=== PATIENT | female | born 1980 | race African-American/Black ===

== ENCOUNTER 2016-11-25 12:32 | Emergency (ER) | payer SELFPAY ==
[~2016-11-25] VITALS: Ht 172.7 cm; Wt 60.0 kg
[2016-11-25 13:31] LABS: URINE BILIRUBIN - DIPSTICK NEGATIVE (NEGATIVE); URINE CLARITY SLIGHT CLOUDY; URINE COLOR YELLOW; URINE GLUCOSE - DIPSTICK NEGATIVE (NEGATIVE); URINE KETONE TRACE mg/dL (NEGATIVE); URINE NITRITE - DIPSTICK NEGATIVE (Negative); URINE PROTEIN - DIPSTICK 30 mg/dL (NEG-TRACE); URINE SPECIFIC GRAVITY 1.025; URINE UROBILINOGEN - DIPSTICK 0.2 E.U./dL (0.2)
[2016-11-25 13:35] LABS: URINE BLOOD DIPSTICK NEGATIVE (NEGATIVE); URINE LEUK ESTERASE MODERATE (NEGATIVE)
[2016-11-25 13:36] LABS: URINE BACTERIA FEW hpf; URINE EPITHELIAL CELLS MODERATE EPI/hpf (0-FEW); URINE MUCUS MODERATE hpf (NONE-FEW); URINE RBC 0-2 RBC/hpf (0-5)
[2016-11-25 13:46] LABS: ALBUMIN 4.6 g/dL (3.2-5.0); ALKALINE PHOSPHATASE 63 u/l (38-126); AMYLASE 125 u/l (30-110); ANION GAP 17 (6-22 (CALC)); BILIRUBIN, TOTAL 1.7 mg/dL (0.0-1.4); BUN 13 mg/dL (7-17); BUN/CREATININE RATIO 13 (12-20 (CALC)); CALCIUM 9.5 mg/dL (8.4-10.2); CARBON DIOXIDE 22 mmol/l (22-30); CHLORIDE 106 mmol/l (95-108); GFR > 60 ML/MIN (>=60 (CALC)); GFR FOR AFR.AMER. > 60 ML/MIN (>=60 (CALC)); GLUCOSE 118 mg/dL (65-105); LIPASE 84 u/l (23-300); POTASSIUM 3.5 mmol/l (3.5-5.1); SGOT/AST 18 u/l (14-36); SGPT/ALT 33 u/l (9-52); SODIUM 141 mmol/l (137-146); TOTAL PROTEIN 7.9 g/dL (6.3-8.2)
[2016-11-25 13:58] LABS: HEMATOCRIT 35.3 % (37.0-47.0); HEMOGLOBIN 11.1 g/dl (12.0-16.0); IMMATURE GRANULOCYTES 0.1 % (0.0-1.0); MEAN CELL VOLUME 72.2 fL CALC (80.0-100.0); MEAN CORPUSCULAR HGB 22.7 pG CALC (26.0-32.0); MEAN CORPUSCULAR HGB CONC 31.4 g/L CALC (32.0-36.0); NEUT# 3.59 thou/uL (2.00-7.15); RED BLOOD COUNT 4.89 mill/uL (4.20-5.60); RED CELL DISTRI WIDTH 19.9 % (11.5-15.5)
[2016-11-25] MEDS ORDERED: CEPHALEXIN500 MG PO (14:23)
[2016-11-25 14:47] VITALS: BP 149/84
== END 2016-11-25 14:48 | disposition left against medical advice (07) | DRG 392 ==
LOC: ED 12:32
PROVIDERS: Emergency Medicine
DX: R10.30 Lower abdominal pain, unspecified (principal); N39.0 Urinary tract infection, site not specified; Z91.19 Patient's noncompliance with other medical treatment and regimen

== ENCOUNTER 2017-05-05 10:25 | Emergency (ER) | payer SELFPAY ==
[~2017-05-05] VITALS: Ht 172.7 cm; Wt 65.0 kg
[~2017-05-05 10:25] MED LIST: CEPHALEXIN500 MG PO
[2017-05-05 11:24] LABS: HEMATOCRIT 34.6 % (37.0-47.0); HEMOGLOBIN 10.5 g/dl (12.0-16.0); IMMATURE GRANULOCYTES 0.1 % (0.0-1.0); MEAN CELL VOLUME 73.6 fL CALC (80.0-100.0); MEAN CORPUSCULAR HGB 22.3 pG CALC (26.0-32.0); MEAN CORPUSCULAR HGB CONC 30.3 g/L CALC (32.0-36.0); NEUT# 3.29 thou/uL (2.00-7.15); RED BLOOD COUNT 4.7 mill/uL (4.20-5.60); RED CELL DISTRI WIDTH 17.6 % (11.5-15.5)
[2017-05-05 11:30] LABS: INFLUENZA A NONE DETECTED (NONE DETECT); INFLUENZA B NONE DETECTED (NONE DETECT)
[2017-05-05] MEDS ORDERED: VENTOLIN HFA IN (12:45)
[2017-05-05] MEDS ORDERED: TUSSIONEX1 ML PO (12:45)
[2017-05-05] MEDS ORDERED: PREDNISONE10 MG PO (12:45)
[2017-05-05 13:18] VITALS: BP 165/102
== END 2017-05-05 13:00 | disposition home or self-care (01) | DRG 866 ==
LOC: ED 10:25
PROVIDERS: Family Medicine
DX: B34.9 Viral infection, unspecified (principal); I10 Essential (primary) hypertension

== ENCOUNTER 2017-05-08 16:05 | Emergency (ER) | payer SELFPAY ==
[~2017-05-08] VITALS: Ht 172.7 cm; Wt 72.0 kg
[~2017-05-08 16:05] MED LIST changes: +PREDNISONE10 MG PO; +TUSSIONEX1 ML PO; +VENTOLIN HFA IN
[2017-05-08 17:38] LABS: HEMOGLOBIN 11.1 g/dl (12.0-16.0); IMMATURE GRANULOCYTES 0.1 % (0.0-1.0); MEAN CELL VOLUME 72.8 fL CALC (80.0-100.0); MEAN CORPUSCULAR HGB 21.9 pG CALC (26.0-32.0); NEUT# 3.56 thou/uL (2.00-7.15); RED BLOOD COUNT 5.08 mill/uL (4.20-5.60); RED CELL DISTRI WIDTH 17.3 % (11.5-15.5)
[2017-05-08 17:42] LABS: URINE BILIRUBIN - DIPSTICK NEGATIVE (NEGATIVE); URINE BLOOD DIPSTICK NEGATIVE (NEGATIVE); URINE COLOR YELLOW; URINE GLUCOSE - DIPSTICK NEGATIVE (NEGATIVE); URINE KETONE TRACE mg/dL (NEGATIVE); URINE LEUK ESTERASE NEGATIVE (NEGATIVE); URINE NITRITE - DIPSTICK NEGATIVE (Negative); URINE PH 5.5 (4.5-8.0); URINE PROTEIN - DIPSTICK NEGATIVE (NEG-TRACE); URINE SPECIFIC GRAVITY >=1.030; URINE UROBILINOGEN - DIPSTICK 0.2 E.U./dL (0.2)
[2017-05-08 17:43] LABS: URINE CLARITY CLEAR
[2017-05-08 18:06] LABS: ALBUMIN 4.4 g/dL (3.2-5.0); ALKALINE PHOSPHATASE 93 u/l (38-126); ANION GAP 17 (6-22 (CALC)); BUN 19 mg/dL (7-17); BUN/CREATININE RATIO 21 (12-20 (CALC)); CARBON DIOXIDE 25 mmol/l (22-30); CHLORIDE 105 mmol/l (95-108); CREATININE 0.9 mg/dL (0.5-1.0); GFR > 60 ML/MIN (>=60 (CALC)); GFR FOR AFR.AMER. > 60 ML/MIN (>=60 (CALC)); LIPASE 144 u/l (23-300); SGOT/AST 23 u/l (14-36); SGPT/ALT 28 u/l (9-52); SODIUM 142 mmol/l (137-146); TOTAL PROTEIN 7.8 g/dL (6.3-8.2)
[2017-05-08 18:11] LABS: POTASSIUM 4.6 mmol/l (3.5-5.1)
[2017-05-08] MEDS ORDERED: ZOFRAN4 M1 PO (18:51)
[2017-05-08 19:49] VITALS: BP 128/74
== END 2017-05-08 19:30 | disposition home or self-care (01) | DRG 392 ==
LOC: ED 16:05
PROVIDERS: Family Medicine
DX: K52.9 Noninfective gastroenteritis and colitis, unspecified (principal); R10.33 Periumbilical pain; R11.2 Nausea with vomiting, unspecified; R50.9 Fever, unspecified
CPT/HCPCS: Q9967

== ENCOUNTER 2017-05-13 01:48 | Emergency (ER) | payer SELFPAY ==
[~2017-05-13] VITALS: Ht 172.7 cm; Wt 68.2 kg
[~2017-05-13 01:48] MED LIST changes: +ZOFRAN4 M1 PO
[2017-05-13 02:30] LABS: HEMATOCRIT 32.3 % (37.0-47.0); HEMOGLOBIN 9.8 g/dl (12.0-16.0); IMMATURE GRANULOCYTES 0.2 % (0.0-1.0); MEAN CELL VOLUME 72.3 fL CALC (80.0-100.0); MEAN CORPUSCULAR HGB 21.9 pG CALC (26.0-32.0); MEAN CORPUSCULAR HGB CONC 30.3 g/L CALC (32.0-36.0); NEUT# 5.83 thou/uL (2.00-7.15); RED BLOOD COUNT 4.47 mill/uL (4.20-5.60); RED CELL DISTRI WIDTH 17.2 % (11.5-15.5)
[2017-05-13 02:45] LABS: ALBUMIN 3.8 g/dL (3.2-5.0); ALKALINE PHOSPHATASE 85 u/l (38-126); ANION GAP 14 (6-22 (CALC)); BILIRUBIN, TOTAL 0.9 mg/dL (0.0-1.4); BUN 12 mg/dL (7-17); BUN/CREATININE RATIO 13 (12-20 (CALC)); CARBON DIOXIDE 23 mmol/l (22-30); CHLORIDE 107 mmol/l (95-108); CREATININE 0.9 mg/dL (0.5-1.0); ETHYL ALCOHOL 0 mg/dl (0-30); GFR > 60 ML/MIN (>=60 (CALC)); GFR FOR AFR.AMER. > 60 ML/MIN (>=60 (CALC)); POTASSIUM 3.7 mmol/l (3.5-5.1); SGOT/AST 18 u/l (14-36); SGPT/ALT 28 u/l (9-52); SODIUM 140 mmol/l (137-146); TOTAL PROTEIN 6.7 g/dL (6.3-8.2)
[2017-05-13 02:54] LABS: MYOGLOBIN 26 ng/mL (0 - 62)
[2017-05-13 04:11] LABS: BARBITURATES NEGATIVE (NEGATIVE); COCAINE NEGATIVE (NEGATIVE); METHADONE NEGATIVE (NEGATIVE); OXCYCODONE NEGATIVE (NEGATIVE); TETRAHYDROCANNABIONOL NEGATIVE (NEGATIVE); TRICYLIC ANTIDEPRESSANTS NEGATIVE (NEGATIVE); URINE BILIRUBIN - DIPSTICK NEGATIVE (NEGATIVE); URINE BLOOD DIPSTICK NEGATIVE (NEGATIVE); URINE CLARITY CLEAR; URINE COLOR YELLOW; URINE GLUCOSE - DIPSTICK NEGATIVE (NEGATIVE); URINE KETONE NEGATIVE (NEGATIVE); URINE LEUK ESTERASE NEGATIVE (NEGATIVE); URINE NITRITE - DIPSTICK NEGATIVE (Negative); URINE PROTEIN - DIPSTICK NEGATIVE (NEG-TRACE); URINE UROBILINOGEN - DIPSTICK 0.2 E.U./dL (0.2)
[2017-05-13 04:59] VITALS: BP 133/65
== END 2017-05-13 05:11 | disposition home or self-care (01) | DRG 312 ==
LOC: ED 01:48
PROVIDERS: Emergency Medicine
DX: R55 Syncope and collapse (principal); D64.9 Anemia, unspecified; I10 Essential (primary) hypertension

== ENCOUNTER 2017-06-09 09:55 | Emergency (ER) | payer SELFPAY ==
[~2017-06-09] VITALS: Ht 172.7 cm; Wt 72.6 kg
[2017-06-09 10:55] LABS: HEMATOCRIT 38.9 % (37.0-47.0); HEMOGLOBIN 11.7 g/dl (12.0-16.0); IMMATURE GRANULOCYTES 0.5 % (0.0-1.0); MEAN CELL VOLUME 75.5 fL CALC (80.0-100.0); MEAN CORPUSCULAR HGB 22.7 pG CALC (26.0-32.0); MEAN CORPUSCULAR HGB CONC 30.1 g/L CALC (32.0-36.0); NEUT# 12.31 thou/uL (2.00-7.15); RED BLOOD COUNT 5.15 mill/uL (4.20-5.60); RED CELL DISTRI WIDTH 21.1 % (11.5-15.5)
[2017-06-09 11:16] LABS: ALBUMIN 3.8 g/dL (3.2-5.0); ALKALINE PHOSPHATASE 89 u/l (38-126); ANION GAP 16 (6-22 (CALC)); BILIRUBIN, TOTAL 1.7 mg/dL (0.0-1.4); BUN 14 mg/dL (7-17); BUN/CREATININE RATIO 14 (12-20 (CALC)); CARBON DIOXIDE 25 mmol/l (22-30); CHLORIDE 103 mmol/l (95-108); GFR > 60 ML/MIN (>=60 (CALC)); GFR FOR AFR.AMER. > 60 ML/MIN (>=60 (CALC)); POTASSIUM 3.7 mmol/l (3.5-5.1); SGOT/AST 16 u/l (14-36); SGPT/ALT 27 u/l (9-52); SODIUM 141 mmol/l (137-146); TOTAL PROTEIN 7.1 g/dL (6.3-8.2)
[2017-06-09] MEDS ORDERED: AMOXICILLIN500 MG PO (11:25)
[2017-06-09] MEDS ORDERED: TORADOL PO (11:25)
[2017-06-09 11:42] VITALS: BP 130/103
== END 2017-06-09 11:52 | disposition home or self-care (01) | DRG 153 ==
LOC: ED 09:55
PROVIDERS: Emergency Medicine
DX: J02.0 Streptococcal pharyngitis (principal); I10 Essential (primary) hypertension

== ENCOUNTER 2017-09-08 14:57 | Emergency (ER) | payer SELFPAY ==
[~2017-09-08] VITALS: Ht 172.7 cm; Wt 64.0 kg
[~2017-09-08 14:57] MED LIST changes: +AMOXICILLIN500 MG PO; +TORADOL PO
[2017-09-08] MEDS ORDERED: IBUPROFEN600 MG PO (16:00)
[2017-09-08] MEDS ORDERED: AUGMENTIN875TAB PO (16:00)
[2017-09-08 16:08] VITALS: BP 158/97
[2017-09-08] MEDS ORDERED: LISINOPRIL5 MG PO (16:22)
== END 2017-09-08 16:15 | disposition home or self-care (01) | DRG 153 ==
LOC: ED 14:57
DX: J06.9 Acute upper respiratory infection, unspecified (principal); I10 Essential (primary) hypertension

== ENCOUNTER 2017-11-14 22:36 | Observation (INO) | payer SELFPAY ==
[~2017-11-14] VITALS: Ht 172.7 cm; Wt 79.4 kg
[~2017-11-14 22:36] MED LIST changes: +AUGMENTIN875TAB PO; +IBUPROFEN600 MG PO; +LISINOPRIL5 MG PO
--- NOTE | 2017-11-14 22:40 | NUR ---
BY EMS STRETCHER TO ROOM 12
[2017-11-14] MEDS ORDERED: ALBUTERO1 IN (23:00)
[2017-11-14 23:10] LABS: IMMATURE GRANULOCYTES 0.2 % (0.0-5.0); MEAN CORPUSCULAR HGB 29.3 pG CALC (26.0-32.0); MEAN CORPUSCULAR HGB CONC 32.3 g/L CALC (32.0-36.0); NEUT# 5.48 thou/uL (2.00-7.15); RED BLOOD COUNT 4.74 mill/uL (4.20-5.60); RED CELL DISTRI WIDTH 16.5 % (11.5-15.5)
[2017-11-14 23:11] LABS: HEMOGLOBIN 13.9 g/dl (12.0-16.0); MEAN CELL VOLUME 90.7 fL CALC (80.0-100.0)
--- NOTE | 2017-11-14 23:13 | NUR ---
SPO2 DROPPED TO 82, PLACED ON 4 L/NC
[2017-11-14 23:17] LABS: ALBUMIN 4.4 g/dL (3.2-5.0); ALKALINE PHOSPHATASE 84 u/l (38-126); ANION GAP 13 (6-22 (CALC)); BILIRUBIN, TOTAL 1.3 mg/dL (0.0-1.4); BUN 11 mg/dL (7-17); BUN/CREATININE RATIO 14 (12-20 (CALC)); CARBON DIOXIDE 27 mmol/l (22-30); CHLORIDE 106 mmol/l (95-108); CREATININE 0.8 mg/dL (0.5-1.0); GFR > 60 ML/MIN (>=60 (CALC)); GFR FOR AFR.AMER. > 60 ML/MIN (>=60 (CALC)); POTASSIUM 3.6 mmol/l (3.5-5.1); SGOT/AST 25 u/l (14-36); SGPT/ALT 33 u/l (9-52); SODIUM 142 mmol/l (137-146); TOTAL PROTEIN 7.8 g/dL (6.3-8.2)
[2017-11-14 23:21] LABS: INFLUENZA A NONE DETECTED (NONE DETECT); INFLUENZA B NONE DETECTED (NONE DETECT)
--- NOTE | 2017-11-14 23:43 | NUR ---
BREATHING EASIER, RR DECREASED, EFFORT DECREASED. FEELING BETTER.
[2017-11-15] VITALS (7 sets, daily range): BP systolic 136–160; BP diastolic 80–103
--- NOTE | 2017-11-15 01:00 | NUR ---
Admission Note Report Given to: RICKY GREER Transported by: Wheelchair X Stretcher Transported with: X Nurse Transporter X Patent IV X O2 X Archaeologist
--- NOTE | 2017-11-15 01:10 | NUR ---
PT ARRIVED TO UNIT VIA STRETCHER WITH ER STAFF IN STABLE CONDITION; ALERT AND ORIENTED. MAGNESIUM INFUSING UPON ARRIVAL; IV SITE APPEARS HEALTHY. TELE ON. DENIES PAIN. RESPIRATIONS LABORED AND EVEN ON 4L OF OXYGEN VIA NC; 100% OXYGEN SATURATION; TITRATED TO 2L AND REMAINS AT 98%. ORIENTED TO ROOM AND CALL LIGHT SYSTEM. PLAN OF CARE DISCUSSED. PT ENCOURAGED TO VERBALIZE CONCERNS. STATES UNDERSTANDING. SAFETY MEASURES IN PLACE. CALL LIGHT WITHIN REACH.
--- NOTE | 2017-11-15 02:52 | NUR ---
PT WAS RESTING IN BED; RESPIRATIONS EVEN AND UNLABORED AND BLOOD PRESSURE IMPROVED. AMBULATED TO BATHROOM WITH EXERTIONAL SOB. PT BECAME ANXIOUS WITH INCREASED SOB. EDUCATED ON BREATHING TECHNIQUES AND RT AT BEDSIDE FOR BREATHING TREATMENT.
--- NOTE | 2017-11-15 05:00 | NUR ---
PT STATES THAT SHE FEELS MUCH BETTER SINCE DUONEB; RESPIRATIONS EVEN AND UNLABORED ON OXYGEN STILL AT 2L. C/O HEADAHCE; COOL PACK APPLIED. NO OTHER REQUESTS OR CONCERNS AT THIS TIME. CALL LIGHT WITHIN REACH.
--- NOTE | 2017-11-15 05:39 | NUR ---
TYLENOL GIVEN FOR HEADAHCE. PT STATES THAT HER COUGH IS NOW PRODUCTIVE WITH THIN CLEAR SECRETIONS.
--- NOTE | 2017-11-15 07:25 | NUR ---
AM ASSESSMENT COMPLETED; SEE INTERVENTIONS; PT RESTING IN BED, LUNGS TIGHT/DIMINSHED WITH WHEEZES THRU OUT; NO SOB OR DISTRESS NOTED AT REST BUT WITH MINIMAL EXERTION PT BECOMES SOB; 02 REMAINS ON AT 2L VIA NC; AMBULATED TO BATHROOM WITH NURSE IN ROOM ADNTOLERATED ACTIVITY BUT ADMITS TO BEING SOB UPON RETURN TO BED; DISTANCE AMBULATED LESS THAN 100 FT. IV ACCESS SALINE LOCKED IN LAC, NO COMPLAINTS OF PAIN; SAFETY MEASURES REINFORCED; WILL CONTINUE TO MONITOR.
--- NOTE | 2017-11-15 09:02 | NUR ---
PT RESTING TOLERATED AM MEAL W/O INCIDENT, COMFORT MEASURES PROVIDED, WILL CONTINUE TO MONITOR.
--- NOTE | 2017-11-15 09:44 | NUR ---
PT RESTING IN BED, NO S/S OF DISTRESS NOTED, O2 REMAIN ON AT 2L VIA NC, CALL GARDUNO WITHIN REACH, WILL ADDRESS HOME MEDS WITH MD ON AM ROUNDS
[2017-11-15] MEDS ORDERED: AMLODIPINE5 MG PO (12:26)
[2017-11-15] MEDS ORDERED: HYDROCHLOROT25 MG PO (12:26)
--- NOTE | 2017-11-15 12:37 | NUR ---
IN TO SEE PT, PLAN OF CARE DISCUSSED INCLUDING STAYONG ONE MORE NIGHT RELATED TO CONTINUE NEED FOR O2, WHEEZES AND SHORTNESS OF BREATH WITH MIN EXERTION. MED LIST UPDATED, CALL GARDUNO WITHIN REACH
--- NOTE | 2017-11-15 15:00 | NUR ---
PT ZES OFFERS NO NEW COMPLAINTS, CALL GARDUNO WITHIN REACH, WILL CONTINUE TO MONITOR.
--- NOTE | 2017-11-15 16:50 | NUR ---
MEDICATED FOR COMPLAINT OF HEADACHE. JEREMI TX'S ORDERED, AND WILL MEDICATED WITH SOLU MEDROL ORDERED, CALL GARDUNO WITHIN REACH
--- NOTE | 2017-11-15 18:32 | NUR ---
RESTING IN BED, OFFERS NO COMPLAINTS, CONTINUES TO TOLERATE NASAL CANNULA, SOME EXERTIONAL SOB STILL NOTED, WILL CONTINUE TO MONITOR.
--- NOTE | 2017-11-15 21:24 | NUR ---
REPORT GIVEN BY TRISHA GARCÍA. PATIENT AWAKE AND WATCHING TV. RESP EVEN AND UNLABORED, O2 2L NC. NO S/S OF DISTRESS NOTED. FALL PRECATUIONS IN PLACE, PLAN OF CARE DISCUSSED, AND PATIENT INFORMED TO CALL WITH ANY QUESTIONS OR CONCERNS.
[2017-11-16] VITALS: BP 149/88
--- NOTE | 2017-11-16 01:27 | NUR ---
PATIENT RESTING WITH EYES CLOSED. RESP EVEN AND UNLABORED. NO S/S OF DISTRESS NOTED.
--- NOTE | 2017-11-16 03:58 | NUR ---
PATIENT RESTING WITH EYES CLOSED. RESP EVEN AND UNLABORED. NO S/S OF DISTRESS NOTED.
[2017-11-16 04:35] VITALS: BP 136/93
[2017-11-16 05:06] LABS: HEMATOCRIT 42.7 % (37.0-47.0); HEMOGLOBIN 13.8 g/dl (12.0-16.0); IMMATURE GRANULOCYTES 0.4 % (0.0-5.0); MEAN CELL VOLUME 89.9 fL CALC (80.0-100.0); MEAN CORPUSCULAR HGB 29.1 pG CALC (26.0-32.0); MEAN CORPUSCULAR HGB CONC 32.3 g/L CALC (32.0-36.0); NEUT# 13.31 thou/uL (2.00-7.15); RED BLOOD COUNT 4.75 mill/uL (4.20-5.60); RED CELL DISTRI WIDTH 16.5 % (11.5-15.5)
[2017-11-16 05:17] LABS: ALBUMIN 4.2 g/dL (3.2-5.0); ALKALINE PHOSPHATASE 86 u/l (38-126); ANION GAP 14 (6-22 (CALC)); BUN 18 mg/dL (7-17); BUN/CREATININE RATIO 21 (12-20 (CALC)); CARBON DIOXIDE 25 mmol/l (22-30); CHLORIDE 106 mmol/l (95-108); CREATININE 0.9 mg/dL (0.5-1.0); GFR > 60 ML/MIN (>=60 (CALC)); GFR FOR AFR.AMER. > 60 ML/MIN (>=60 (CALC)); MAGNESIUM 2.2 mg/dL (1.6-2.3); SGOT/AST 21 u/l (14-36); SGPT/ALT 31 u/l (9-52); SODIUM 140 mmol/l (137-146); TOTAL PROTEIN 7.5 g/dL (6.3-8.2)
--- NOTE | 2017-11-16 07:20 | NUR ---
PT ALERT AND OREINTED SITTING UP IN BED THIS AM; AM ASSESSMENT COMPLETED; SEE INTERVENTIONS; LUNGS WITH WHEEZES THRU OUT BUT MUCH IMPROVED OVER YESTERDAY; NO SOB OR DISTRESS NOTED AT REST PT STATES SHE IS STILL SOB WITH EXERTION BUT ALSO MUCH IMPROVED OVER YESTERDAY: REMAINS ON AT 2L VIA NC (ALTHOUGH OFF AT THIS TIME NEXT TO PT IN BED; AMBULATES TO BATHROOM INDEPENDENTLY AND TOLERATES ACTIVITY W/O INCIDENT; IV ACCESS SALINE LOCKED IN LAC, NO COMPLAINTS OF PAIN; SAFETY MEASURES REINFORCED; WILL CONTINUE TO MONITOR.
[2017-11-16 07:35] VITALS: BP 132/87
--- NOTE | 2017-11-16 07:48 | NUR ---
PT PROVIDED WITH CLOTHES FOR WASHING LISA AND FACE PRIOR TO AM MEAL
[2017-11-16 08:45] VITALS: BP 132/87
--- NOTE | 2017-11-16 10:13 | NUR ---
PT RESTING IN BED, TALKS ON TELEPHONE INTERMITTENTLY, CALL GARDUNO WITHIN REACH. OFFERS NO NEW COMPLAINTS
[2017-11-16] MEDS ORDERED: AMOXICILLIN500 MG PO (12:00)
[2017-11-16] MEDS ORDERED: DUONEB IN (12:01)
[2017-11-16] MEDS ORDERED: PREDNISONE10 MG PO (12:08)
--- NOTE | 2017-11-16 13:10 | NUR ---
Discharge instructions given. Patient verbalizes understanding of same. Discharged in stable condition via Wheelchair to Home with family. All belongings sent with pt. SCRIPTS SENT WITH PT FOR DUO NEB, PREDNISONE AND AMOXICILLIN.
== END 2017-11-16 13:10 | disposition home or self-care (01) | DRG 203 ==
LOC: ED 22:36 → ED-I 11-15 00:24 → ED 11-15 00:37 → MS2 11-15 00:38
PROVIDERS: Emergency Medicine; Internal Medicine Nephrology; ADMIT Internal Medicine; ATTEND Internal Medicine
DX: J45.901 Unspecified asthma with (acute) exacerbation (principal); J02.0 Streptococcal pharyngitis; I10 Essential (primary) hypertension; R09.02 Hypoxemia
CPT/HCPCS: G0378

== ENCOUNTER 2018-12-05 11:49 | Emergency (ER) | payer OTHER ==
[~2018-12-05] VITALS: Ht 172.7 cm; Wt 90.9 kg
[~2018-12-05 11:49] MED LIST changes: +ALBUTERO1 IN; +AMLODIPINE5 MG PO; +DUONEB IN; +HYDROCHLOROT25 MG PO
[2018-12-05 12:20] LABS: HEMOGLOBIN 12.2 g/dl (12.0-16.0); IMMATURE GRANULOCYTES 0.5 % (0.0-5.0); MEAN CORPUSCULAR HGB 26.8 pG CALC (26.0-32.0); MEAN CORPUSCULAR HGB CONC 32.1 g/L CALC (32.0-36.0); NEUT# 5.73 thou/uL (2.00-7.15); RED BLOOD COUNT 4.55 mill/uL (4.20-5.60)
[2018-12-05 12:21] LABS: MEAN CELL VOLUME 83.5 fL CALC (80.0-100.0)
[2018-12-05 12:33] LABS: ALBUMIN 4.5 g/dL (3.2-5.0); ALKALINE PHOSPHATASE 129 u/l (38-126); ANION GAP 13 (6-22 (CALC)); BILIRUBIN, TOTAL 0.9 mg/dL (0.0-1.4); BUN 12 mg/dL (7-17); BUN/CREATININE RATIO 14 (12-20 (CALC)); CARBON DIOXIDE 25 mmol/l (22-30); CHLORIDE 104 mmol/l (95-108); CREATININE 0.8 mg/dL (0.5-1.0); GFR > 60 ML/MIN (>=60 (CALC)); GFR FOR AFR.AMER. > 60 ML/MIN (>=60 (CALC)); SGOT/AST 20 u/l (14-36); SODIUM 138 mmol/l (137-146)
[2018-12-05 12:51] LABS: BETA-HCG, QUANT(RESULT NUMBER) 773 mIU/mL
[2018-12-05 14:13] LABS: URINE BILIRUBIN - DIPSTICK NEGATIVE (NEGATIVE); URINE BLOOD DIPSTICK NEGATIVE (NEGATIVE); URINE COLOR YELLOW; URINE GLUCOSE - DIPSTICK NEGATIVE (NEGATIVE); URINE KETONE 15 mg/dL (NEGATIVE); URINE LEUK ESTERASE TRACE (NEGATIVE); URINE NITRITE - DIPSTICK NEGATIVE (Negative); URINE PH 6.5 (4.5-8.0); URINE PROTEIN - DIPSTICK NEGATIVE (NEG-TRACE)
[2018-12-05] MEDS ORDERED: LABETALOL200 MG PO (14:34)
[2018-12-05 14:53] VITALS: BP 149/93
== END 2018-12-05 14:54 | disposition home or self-care (01) | DRG 833 ==
LOC: ED 11:49
PROVIDERS: Family Medicine
DX: O10.911 Unspecified pre-existing hypertension complicating pregnancy, first trimester (principal); Z3A.01 Less than 8 weeks gestation of pregnancy; T44.7X6A Underdosing of beta-adrenoreceptor antagonists, initial encounter; Z91.120 Patient's intentional underdosing of medication regimen due to financial hardship

== ENCOUNTER 2019-01-19 12:30 | Emergency (ER) | payer OTHER ==
[~2019-01-19] VITALS: Ht 172.7 cm; Wt 69.0 kg
[~2019-01-19 12:30] MED LIST changes: +LABETALOL200 MG PO
[2019-01-19] MEDS ORDERED: AMOXICILLIN500 MG PO (15:12)
[2019-01-19 15:44] VITALS: BP 135/77
== END 2019-01-19 15:49 | disposition home or self-care (01) | DRG 149 ==
LOC: ED 12:30
DX: R42 Dizziness and giddiness (principal)

== ENCOUNTER 2019-05-01 | Emergency (ER) | payer OTHER ==
[2019-05-01 23:33] LABS: URINE BILIRUBIN - DIPSTICK NEGATIVE (NEGATIVE); URINE BLOOD DIPSTICK LARGE (NEGATIVE); URINE COLOR YELLOW; URINE GLUCOSE - DIPSTICK 100 mg/dL (NEGATIVE); URINE KETONE TRACE mg/dL (NEGATIVE); URINE NITRITE - DIPSTICK NEGATIVE (Negative); URINE PH 6.5 (4.5-8.0); URINE PROTEIN - DIPSTICK 30 mg/dL (NEG-TRACE); URINE SPECIFIC GRAVITY 1.025
[2019-05-01 23:47] LABS: URINE LEUK ESTERASE MODERATE (NEGATIVE)
[2019-05-01 23:48] LABS: HEMATOCRIT 34.3 % (37.0-47.0); IMMATURE GRANULOCYTES 0.4 % (0.0-5.0); MEAN CELL VOLUME 86.4 fL CALC (80.0-100.0); MEAN CORPUSCULAR HGB 27.7 pG CALC (26.0-32.0); MEAN CORPUSCULAR HGB CONC 32.1 g/L CALC (32.0-36.0); NEUT# 11.69 thou/uL (2.00-7.15); RED BLOOD COUNT 3.97 mill/uL (4.20-5.60); RED CELL DISTRI WIDTH 15.2 % (11.5-15.5)
[2019-05-01 23:55] LABS: URINE BACTERIA FEW hpf; URINE RBC TNTC RBC/hpf (0-5); URINE SQUAMOUS EPITHELIAL CELL FEW EPI/hpf (0-FEW); URINE WBC 20-50 WBC/hpf (0-5)
[2019-05-01 23:58] LABS: ALKALINE PHOSPHATASE 104 u/l (38-126); ANION GAP 10 (6-22 (CALC)); BUN 8 mg/dL (7-17); BUN/CREATININE RATIO 13 (12-20 (CALC)); CARBON DIOXIDE 21 mmol/l (22-30); CHLORIDE 106 mmol/l (95-108); CREATININE 0.6 mg/dL (0.5-1.0); GFR > 60 ML/MIN (>=60 (CALC)); GFR FOR AFR.AMER. > 60 ML/MIN (>=60 (CALC)); POTASSIUM 3.9 mmol/l (3.5-5.1); SGOT/AST 15 u/l (14-36); SODIUM 133 mmol/l (137-146)
[2019-05-02 00:02] LABS: ALBUMIN 3.2 g/dL (3.2-5.0); BILIRUBIN, TOTAL 0.4 mg/dL (0.0-1.4); TOTAL PROTEIN 6.3 g/dL (6.3-8.2)
== END 2019-05-02 01:37 | DRG 833 ==
PROVIDERS: Family Medicine
DX: O46.92 Antepartum hemorrhage, unspecified, second trimester (principal); O26.892 Other specified pregnancy related conditions, second trimester; R10.2 Pelvic and perineal pain; Z3A.27 27 weeks gestation of pregnancy
CPT/HCPCS: J0131

== ENCOUNTER 2023-04-04 07:29 | Emergency (ER) | payer SELFPAY ==
[~2023-04-04] VITALS: Ht 172.7 cm; Wt 68.0 kg
[2023-04-04] MEDS ORDERED: AMOX/K CLAV875 M1 PO (07:48)
[2023-04-04] MEDS ORDERED: METRONIDAZOLE500 MG PO (07:48)
[2023-04-04 08:19] VITALS: BP 128/76
== END 2023-04-04 08:26 | disposition home or self-care (01) | DRG 159 ==
LOC: ED 07:29
DX: K08.89 Other specified disorders of teeth and supporting structures (principal); I10 Essential (primary) hypertension; J45.909 Unspecified asthma, uncomplicated

== ENCOUNTER 2023-10-04 07:30 | Emergency (ER) | payer OTHER ==
[2023-10-04] VITALS (7 sets, daily range): BP systolic 141–154; BP diastolic 104–118
[~2023-10-04] VITALS: Ht 172.7 cm; Wt 83.9 kg
[~2023-10-04 07:30] MED LIST changes: +AMOX/K CLAV875 M1 PO; +METRONIDAZOLE500 MG PO
[2023-10-04 07:58] LABS: HEMATOCRIT 30.4 % (37.0-47.0); IMMATURE GRANULOCYTES 0.5 % (0.0-5.0); MEAN CORPUSCULAR HGB CONC 27.6 g/dL CAL (32.0-36.0); RED BLOOD COUNT 4.95 mill/uL (4.20-5.60); RED CELL DISTRI WIDTH 21.1 % (11.5-15.5)
[2023-10-04 08:16] LABS: ALBUMIN 3.5 g/dL (3.2-5.0); ANION GAP 10 (6-22 (CALC)); BUN 19 mg/dL (7-17); BUN/CREATININE RATIO 20 (12-20 (CALC)); CARBON DIOXIDE 21 mmol/l (22-30); CHLORIDE 111 mmol/l (95-108); ESTIMATED GFR 72 ML/MIN (>=90 (CALC)); SODIUM 138 mmol/l (137-146); TOTAL PROTEIN 7.5 g/dL (6.3-8.2)
[2023-10-04 08:17] LABS: ALKALINE PHOSPHATASE 428 u/l (38-126); SGOT/AST 55 u/l (14-36)
[2023-10-04 08:20] LABS: HEMOGLOBIN 8.4 g/dl (12.0-16.0); MEAN CELL VOLUME 61.4 fL CALC (80.0-100.0); PLATELET COUNT 331 thou/uL (130-400)
[2023-10-04 08:21] LABS: MANUAL DIFFERENTIAL YES
[2023-10-04 08:28] LABS: ANISOCYTOSIS MARKED; BAND 2 % (0-8); HYPOCHROMIA MARKED; MICROCYTOSIS MARKED; NUCLEATED RED BLOOD CELL 1 /100WBC (0-1); POIKILOCYTOSIS FEW; POLYCHROMASIA FEW
[2023-10-04 08:29] LABS: PLATELET ESTIMATE NORMAL
[2023-10-04] MEDS ORDERED: LASIX20 MG PO (10:23)
[2023-10-04] MEDS ORDERED: ZPAK PO (10:23)
[2023-10-04] MEDS ORDERED: FUROSEMIDE 40 MG/4 ML SDV IV ONE (10:25)
== END 2023-10-04 10:35 | disposition home or self-care (01) | DRG 947 ==
LOC: ED 07:30
PROVIDERS: Family Medicine
DX: R60.0 Localized edema (principal); J18.9 Pneumonia, unspecified organism; J91.8 Pleural effusion in other conditions classified elsewhere; R74.01 Elevation of levels of liver transaminase levels; R59.0 Localized enlarged lymph nodes; E80.6 Other disorders of bilirubin metabolism; D50.9 Iron deficiency anemia, unspecified; E04.1 Nontoxic single thyroid nodule; I10 Essential (primary) hypertension; J45.909 Unspecified asthma, uncomplicated; Z20.822 Contact with and (suspected) exposure to COVID-19
CPT/HCPCS: Q9967